=== PATIENT | female | born 1970 | race African-American/Black ===

== ENCOUNTER 2017-06-22 22:44 | Emergency (ER) | payer MEDICAID, MEDICARE ==
[~2017-06-22] VITALS: Ht 154.9 cm; Wt 132.9 kg
[~2017-06-22 22:44] MED LIST: DOCU-109 PO; POLY17PO29 PO
[2017-06-22 23:01] VITALS: BP 163/83
--- NOTE | 2017-06-22 23:19 | PHYS DOC ---
Past Medical History Past Medical History: Anxiety, Arthritis, High Cholesterol, Hypertension Past Surgical History: Cholecystectomy, , Tubal ligation Alcohol Use: Occasionally Drug Use: None Adult General Chief Complaint Chief Complaint: OTHER COMPLAINTS HPI HPI Patient is a 46 year old morbidly obese female who presents with complaints of generalized body aches and generalized body swelling. She states this been going on for about a week. Patient has no other complaints. No sick contacts. No recent changes in medication. Review of Systems Review of Systems Constitutional: Denies fever or chills. All over body swelling Eyes: Denies change in visual acuity, redness, or eye pain [] HENT: Denies nasal congestion. Throat swelling Respiratory: Denies cough or shortness of breath [] Cardiovascular: No chest pain GI: Denies abdominal pain, nausea, vomiting, bloody stools or diarrhea [] : Denies dysuria or hematuria [] Musculoskeletal: Denies back pain or joint pain [] Integument: Denies rash or skin lesions [] Neurologic: Denies headache, focal weakness or sensory changes [] Endocrine: Denies polyuria or polydipsia [] Allergies Allergies Allergies Coded Allergies Type Severity Reaction Last Updated Verified No Known Drug Allergies 11/06/13 No Physical Exam Physical Exam Constitutional: Well developed, well nourished, no acute distress, non-toxic appearance. Morbidly obese HENT: Normocephalic, atraumatic, bilateral external ears normal, oropharynx moist, no oral exudates/swelling, nose normal. Airway patent Eyes: EOMI, conjunctiva normal, no discharge. [] Neck: Normal range of motion, no tenderness, trachea midline, no stridor. [] Cardiovascular:Heart rate regular rhythm, no murmur, equal pulses, normal perfusion Lungs & Thorax: Bilateral breath sounds clear to auscultation no tachypnea Abdomen: Bowel sounds normal, soft, no tenderness, no masses, no pulsatile masses. [] Skin: Warm, dry, no erythema, no rash. [] Back: No tenderness, no CVA tenderness. [] Extremities: No tenderness, no cyanosis, no DVT, ROM intact, trace pedal edema. [] Neurologic: Alert and oriented X 3, normal motor function, and the list in the ED with normal gait and without assistance no focal deficits noted. Normal voice Psychologic: Affect normal, judgement normal, mood normal. Current Patient Data Vital Signs Vital Signs Date Time Temp Pulse Resp B/P (MAP) Pulse Ox O2 Delivery O2 Flow Rate FiO2 06/22/17 23:01 98.3 94 18 163/83 (109) 97 Room Air 98.3 Lab Values Laboratory Tests Test 06/22/17 23:21 White Blood Count 7.5 x10^3/uL (4.0-11.0) Red Blood Count 4.35 x10^6/uL (3.50-5.40) Hemoglobin 11.9 g/dL (12.0-15.5) L Hematocrit 36.8 % (36.0-47.0) Mean Corpuscular Volume 85 fL (79-100) Mean Corpuscular Hemoglobin 27 pg (25-35) Mean Corpuscular Hemoglobin Concent 32 g/dL (31-37) Red Cell Distribution Width 16.1 % (11.5-14.5) H Platelet Count 231 x10^3/uL (140-400) Neutrophils (%) (Auto) 56 % (31-73) Lymphocytes (%) (Auto) 32 % (24-48) Monocytes (%) (Auto) 8 % (0-9) Eosinophils (%) (Auto) 3 % (0-3) Basophils (%) (Auto) 1 % (0-3) Neutrophils # (Auto) 4.2 x10^3uL (1.8-7.7) Lymphocytes # (Auto) 2.4 x10^3/uL (1.0-4.8) Monocytes # (Auto) 0.6 x10^3/uL (0.0-1.1) Eosinophils # (Auto) 0.2 x10^3/uL (0.0-0.7) Basophils # (Auto) 0.1 x10^3/uL (0.0-0.2) Sodium Level 134 mmol/L (136-145) L Potassium Level 3.8 mmol/L (3.5-5.1) Chloride Level 99 mmol/L (98-107) Carbon Dioxide Level 32 mmol/L (21-32) Anion Gap 3 (6-14) L Blood Urea Nitrogen 10 mg/dL (7-20) Creatinine 0.8 mg/dL (0.6-1.0) Estimated GFR (Cockcroft-Gault) 92.6 BUN/Creatinine Ratio 13 (6-20) Glucose Level 122 mg/dL (70-99) H Calcium Level 8.8 mg/dL (8.5-10.1) Total Bilirubin 0.1 mg/dL (0.2-1.0) L Aspartate Amino Transferase (AST) 22 U/L (15-37) Alanine Aminotransferase (ALT) 36 U/L (14-59) Alkaline Phosphatase 74 U/L (46-116) Troponin I Quantitative < 0.017 ng/mL (0.000-0.055) CF-Otm-V-Type Natriuretic Peptide 50 pg/mL (0-124) Total Protein 7.6 g/dL (6.4-8.2) Albumin 3.1 g/dL (3.4-5.0) L Albumin/Globulin Ratio 0.7 (1.0-1.7) L Laboratory Tests 06/22/17 23:21 Laboratory Tests 06/22/17 23:21 EKG EKG 2322 88, SR, no stemi[] Radiology/Procedures Radiology/Procedures [] Course & Med Decision Making Course & Med Decision Making Pertinent Labs and Imaging studies reviewed. (See chart for details) 0004 patient in no distress in the room, unremarkable vital signs with the exception of systolic blood pressure was 163; patient has been made aware results of labs. I discussed with patient her chief complaint a now I explained to her that currently she is in stable condition and she can follow up with her primary care doctor for further evaluation. We did discuss the possibility that she may be having some mild allergic reaction that is giving her some of her symptoms. I also did Discuss with her increased exercise and some weight loss and that may improve some of her symptoms as well. Patient agrees to follow-up as directed. Objectively I do no see any swelling consistent with angioedema or that of an allergic reaction. [] Dragon Disclaimer Dragon Disclaimer This electronic medical record was generated, in whole or in part, using a voice recognition dictation system. Departure Departure Impression: Primary Impression: Encounter for medical screening examination Disposition: HOME, SELF-CARE Condition: STABLE Referrals: JAMEEL CAPONE (PCP) His follow-up with your PCP in 2 days for recheck and reevaluation. Patient Instructions: Medical Screening Exam Alexander PARR MD Jun 22, 2017 23:18
[2017-06-22 23:30] LABS: BASO # 0.1 x10^3/uL (0.0-0.2); BASO % 1 % (0-3); EOS % 3 % (0-3); HEMATOCRIT 36.8 % (36.0-47.0); HEMOGLOBIN 11.9 g/dL (12.0-15.5); LYMPH # 2.4 x10^3/uL (1.0-4.8); LYMPH % 32 % (24-48); MEAN CORPUSCULAR HEMOGLOBIN 27 pg (25-35); MEAN CORPUSCULAR HGB CONC 32 g/dL (31-37); MEAN CORPUSCULAR VOLUME 85 fL (79-100); MONO % 8 % (0-9); NEUT % 56 % (31-73); PLATELET COUNT 231 x10^3/uL (140-400); RED BLOOD COUNT 4.35 x10^6/uL (3.50-5.40); RED CELL DISTRIBUTION WIDTH 16.1 % (11.5-14.5); WHITE BLOOD COUNT 7.5 x10^3/uL (4.0-11.0)
[2017-06-22 23:40] LABS: CALCIUM 8.8 mg/dL (8.5-10.1); CREATININE 0.8 mg/dL (0.6-1.0); GFR 92.6; POTASSIUM 3.8 mmol/L (3.5-5.1)
[2017-06-22 23:46] LABS: ALBUMIN 3.1 g/dL (3.4-5.0); ALBUMIN/GLOBULIN RATIO 0.7 (1.0-1.7); TOTAL BILIRUBIN 0.1 mg/dL (0.2-1.0); TOTAL PROTEIN 7.6 g/dL (6.4-8.2)
--- NOTE | 2017-06-23 06:06 | EKG ---
[facility] [address] [place] [id number] Test Date: 2017-06-22 Test Time: 23:23:02 Pat Name: JACKIE CRUMP Department: Room: Gender: F [place]: : 1970 Requested By: Alexander PARR Order Number: [id number] Reading MD: Guru Saul Measurements Intervals [place] Rate: 90 P: 62 ME: 148 QRS: 25 QRSD: 82 T: 28 QT: 352 QTc: 435 Interpretive Statements SINUS RHYTHM Electronically Signed On 07-13-2017 9:16:47 CDT by Guru Saul
== END 2017-06-23 00:40 | disposition home or self-care (01) ==
LOC: ER 22:44
DX: R52 Pain, unspecified (principal); M19.90 Unspecified osteoarthritis, unspecified site; I10 Essential (primary) hypertension; E78.00 Pure hypercholesterolemia, unspecified
CPT/HCPCS: 36415; 80053; 83880; 84484; 85025; 93005; 99285-25